=== PATIENT | male | born 1940 | race Caucasian/White ===

== ENCOUNTER → 2017-03-25 | Day surgery (SDC) | payer OTHER ==
[~2017-03-25] MED LIST: BUPIVACAINE/EPINEPHRINE 0.25% 50 ML VIAL INFIL ONE; BUPIVACAINE/EPINEPHRINE 0.25% 50 ML VIAL ONE; LACTATED RINGER'S 1000 ML INJ 1,000 ML ONE; LIDOCAINE 1%/EPINEPHrine 1:100,000 SOLN 20 ML VIAL ONE; MIDAZOLAM HCL 2 MG/2 ML VIAL ONE; NEOMYCIN/POLYMYXIN/BACITRACIN OINT 15 GM TUBE ONE; PROPOFOL 500 MG/50 ML BTL IV ONE
--- NOTE | 2017-03-25 15:27 | TN ---
cc: CHERELLE JENKINS M.D., JOSEPH D. M.D. DATE OF SURGERY: 03/25/2017 PREOPERATIVE DIAGNOSIS A large mass to the left upper extremity just below the elbow laterally. POSTOPERATIVE DIAGNOSIS A large mass to the left upper extremity just below the elbow laterally. PROCEDURE Excision of 11 x 9 cm soft mass left upper extremity forearm just distal to the elbow. ANESTHESIA TIVA. SURGEON Dr. Black. INDICATION This is a pleasant 76-year-old gentleman who has had this mass in the left upper extremity for sometime that has been growing and becoming more bothersome to him. Plans were made for above. DETAILS OF PROCEDURE The patient was taken to the operating room and placed in the supine position. After anesthesia his left forearm and arm and hand are prepped with Betadine. We prepped it out then draped it. A timeout is done. We then anesthetize the area. An elliptical incision is made overlying the apex of the mass. This is a quite large mass and he will have redundant skin after excising this. An elliptical incision is made about 9 x 7 cm. This is carried out in deep subcutaneous tissue encountering the lipomatous structure which is carefully enucleated out from the lateral aspect of the forearm musculature. It comes out using a combination of blunt dissection, sharp dissection and electrocautery. The stalk of the lipomatous structure is cauterized. The lipoma and the excess skin is completely removed. We irrigate. Hemostasis is assured with the electrocautery device. We then close in two layers with 3-0 Vicryl in the subcuticular layer and then a running 4-0 Vicryl. Steri-Strips are applied. Sterile bandage applied. The patient tolerated the procedure well and had no immediate post-op complications. Kevin Black MD JJAVON/DESTINY /2:16 PM /3:14 PM
== END | disposition home or self-care (01) ==
LOC: ESDC 12:04
PROVIDERS: ATTEND Surgery
DX: D17.22 Benign lipomatous neoplasm of skin and subcutaneous tissue of left arm (principal)
CPT/HCPCS: 00400; 24071; 88304; J2250; J3010; J7120; 88305